=== PATIENT | male | born 1940 | race African-American/Black ===

== ENCOUNTER 2018-12-14 04:33 | Emergency (ER) | payer MEDICARE ==
[~2018-12-14] VITALS: Ht 188 cm; Wt 95.5 kg
[2018-12-14 04:39] VITALS: TEMP 96.5
[2018-12-14] MEDS ORDERED: FLOMAX 0.40.4 MG/CAP PO (04:55)
[2018-12-14] MEDS ORDERED: PROSCAR 5MG5 MG PO (04:55)
[2018-12-14 05:05] LABS: COLLECTION METHOD CLEAN CATCH
[2018-12-14 05:13] LABS: PH 7 (5-8); SQUAMOUS EPITHELIAL None Seen /hpf; URINE APPEARANCE Clear; URINE BACTERIA None Seen /hpf; URINE BILIRUBIN Negative (NEGATIVE); URINE BLOOD 1+ (NEGATIVE); URINE COLOR Straw; URINE GLUCOSE Negative (NEGATIVE); URINE KETONE Negative (NEGATIVE); URINE LEUKOCYTE ESTERASE Negative (NEGATIVE); URINE NITRATE Negative (NEGATIVE); URINE PROTEIN(semi-quant) Negative (NEGATIVE); URINE UROBILINOGEN Negative (NEGATIVE)
[2018-12-14 05:31] VITALS: BP 187/94; PULSE 101
== END 2018-12-14 05:38 | disposition home or self-care (01) ==
LOC: COL.ER 04:33
PROVIDERS: Emergency Medicine
DX: R33.9 Retention of urine, unspecified (principal); N40.0 Benign prostatic hyperplasia without lower urinary tract symptoms; Z87.891 Personal history of nicotine dependence